=== PATIENT | male | born 1980 | race Caucasian/White ===

== ENCOUNTER 2023-10-24 18:25 | Emergency (ER) | payer OTHER ==
[2023-10-24 18:39] VITALS: RESP 18; TEMP 98.3
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
[2023-10-24] MEDS: AMOXIC-POT CLAV 875-125MG 1 EACH TAB PO STA (20:21)
[2023-10-24 20:51] VITALS: BP 121/83; PULSE 77
== END 2023-10-24 20:30 | disposition home or self-care (01) ==
LOC: EC 18:25
DX: S20.219A Contusion of unspecified front wall of thorax, initial encounter (principal); J32.9 Chronic sinusitis, unspecified; F17.200 Nicotine dependence, unspecified, uncomplicated; Z88.5 Allergy status to narcotic agent; V49.40XA Driver injured in collision with unspecified motor vehicles in traffic accident, initial encounter; Y92.410 Unspecified street and highway as the place of occurrence of the external cause
CPT/HCPCS: 99284

== ENCOUNTER 2024-02-20 08:54 | Emergency (ER) | payer OTHER ==
[2024-02-20 09:04] VITALS: TEMP 97.7
[2024-02-20] MEDS: LIDOCAINE 1% INJ 10MG/ML (20 ML MDV) SQ ONE (09:24)
[2024-02-20] MEDS: DIPH,PERTUS(ACELL)TETVAC-LF 0.5 ML VIAL IM ONE (09:26)
[2024-02-20] MEDS: ONDANSETRON 4 MG/2 ML VIAL IVP STA (09:26)
[2024-02-20] MEDS: HYDROmorphone 1 MG/ML 1 ML SYRINGE IVP STA (09:28)
--- NOTE | 2024-02-20 09:29 | XR ---
EXAMINATION TYPE: XR forearm LT DATE OF EXAM: 02/20/2024 9:23 AM CLINICAL INDICATION:Male, 44 years old with history of pain; COMPARISON: None TECHNIQUE: XR forearm LT; forearm was examined in AP and lateral projections. FINDINGS/IMPRESSION: * No evidence of acute fracture. * Soft tissue defect over the posterior forearm with high density foci possibly representing radiopa que foreign bodies.
[2024-02-20] MEDS: PIPERACILLIN-TAZOBACTAM 3.375 GM in SODIUM CHLORIDE 0.9% 100 ML IVPB STA (09:31)
--- NOTE | 2024-02-20 09:31 | XR ---
EXAMINATION TYPE: XR hand complete bilateral DATE OF EXAM: 02/20/2024 9:22 AM CLINICAL INDICATION:Male, 44 years old with history of Dog bite; [facility] COMPARISON: None TECHNIQUE: XR hand complete bilateral Frontal, lateral and oblique views were obtained. FINDINGS: Normal alignment of the visualized joints. No acute osseous pathology is identified. No e vidence of soft tissue swelling. No significant degeneration. No radiopaque foreign bodies. IMPRESSION: No acute osseous pathology.
--- NOTE | 2024-02-20 10:00 | ED ---
Animal Bite HPI - General Chief Complaint: Animal Bite Stated Complaint: Animal bite Time Seen by Provider: 02/20/24 09:04 Source: patient, EMS, RN notes reviewed Mode of arrival: EMS Limitations: no limitations - History of Present Illness Initial Comments: 44-year-old male presents emergency department complaint of dog bite. Patient states that he broke up his dog and his sisters dog. Patient states that both dogs are up-to-date on vaccines patient unsure when his last tetanus was. Patient states he has bites on both hands, arms. - Related Data Previous Rx's Medication Instructions Recorded Amoxic-Pot Clav 875-125Mg 1 tab PO Q12HR 1 Days #14 tab 10/24/23 [Augmentin 875-125] Amoxic-Pot Clav 875-125Mg 1 tab PO Q12HR #20 tab 02/20/24 [Augmentin 875-125] Ibuprofen [Motrin] 600 mg PO Q8HR PRN #20 tab 02/20/24 traMADol HCl [Ultram] 50 mg PO Q6H PRN #12 tab 02/20/24 Allergies Allergy/AdvReac Type Severity Reaction Status Date / Time codeine AdvReac Itching Verified 02/20/24 09:03 Review of Systems ROS Statement: Those systems with pertinent positive or pertinent negative responses have been documented in the HPI. ROS Other: All systems not noted in ROS Statement are negative. Past Medical History Past Medical History: No Reported History History of Any Multi-Drug Resistant Organisms: None Reported Past Surgical History: Orthopedic Surgery Additional Past Surgical History / Comment(s): Bilat carpal tunnel, Left great toe Past Psychological History: No Psychological Hx Reported Smoking Status: Light tobacco smoker Past Alcohol Use History: None Reported Past Drug Use History: None Reported General Exam Limitations: no limitations General appearance: alert, in no apparent distress Head exam: Present: atraumatic, normocephalic, normal inspection Respiratory exam: Present: normal lung sounds bilaterally. Absent: respiratory distress, wheezes, rales, rhonchi, stridor Cardiovascular Exam: Present: regular rate, normal rhythm, normal heart sounds. Absent: systolic murmur, diastolic murmur, rubs, gallop, clicks Extremities exam: Present: other (Multiple lacerations, puncture wounds to both hands, forearms, no active bleeding full range of motion neurovascular intact) Neurological exam: Present: alert, reflexes normal. Absent: motor sensory deficit Course Vital Signs 02/20/24 02/20/24 08:56 09:25 Temperature 97.7 F Pulse Rate 61 73 Respiratory 17 17 Rate Blood Pressure 112/82 121/86 O2 Sat by Pulse 100 100 Oximetry Procedures - Laceration Laceration #1 Consent Obtained: verbal consent Indication: laceration Site: hand Size (cm): 2 Description: irregular Depth: simple, single layer Anesthetic Used: lidocaine 1% Anesthesia Technique: local infiltration Amount (mls): 2 Pre-repair: wound explored, irrigated extensively, deep structures intact Type of Sutures: nylon Size of Sutures: 4-0 Number of Sutures: 2 Technique: simple, interrupted Patient Tolerated Procedure: well, no complications Laceration #2 Site: upper extremity Size (cm): 1 Description: linear Depth: simple, single layer Anesthetic Used: lidocaine 1% Anesthesia Technique: local infiltration Amount (mls): 1 Pre-repair: wound explored, irrigated extensively, deep structures intact Type of Sutures: nylon Size of Sutures: 4-0 Number of Sutures: 1 Technique: simple, interrupted Patient Tolerated Procedure: well, no complications Laceration #3 Consent Obtained: verbal consent Indication: laceration Site: upper extremity Size (cm): 1 Description: linear Anesthetic Used: lidocaine 1% Anesthesia Technique: local infiltration Amount (mls): 1 Pre-repair: wound explored, irrigated extensively, deep structures intact Type of Sutures: nylon Size of Sutures: 4-0 Number of Sutures: 2 Technique: simple, interrupted Patient Tolerated Procedure: well, no complications Laceration #4 Consent Obtained: verbal consent Indication: laceration Site: upper extremity (1) Size (cm): 1 Description: irregular Depth: simple, single layer Anesthetic Used: lidocaine 1% Anesthesia Technique: local infiltration Amount (mls): 1 Pre-repair: wound explored Type of Sutures: nylon Size of Sutures: 4-0 Number of Sutures: 2 Technique: simple, interrupted Patient Tolerated Procedure: well, no complications Laceration #6 Consent Obtained: verbal consent Indication: laceration Site: upper extremity Size (cm): 1 Description: linear, irregular Depth: simple, single layer Anesthetic Used: lidocaine 1% Anesthesia Technique: local infiltration Amount (mls): 1 Pre-repair: wound explored, irrigated extensively, deep structures intact Type of Sutures: nylon Size of Sutures: 4-0 Number of Sutures: 1 Patient Tolerated Procedure: well, no complications Medical Decision Making - Medical Decision Making Was pt. sent in by a medical professional or institution (BATOOL James, INVENTORY ASSOCIATE AND DRIVER, urgent care, hospital, or alf...) When possible be specific @ -No Did you speak to anyone other than the patient for history (EMS, parent, family, police, friend...)? What history was obtained from this source @ -No Did you review nursing and triage notes (agree or disagree)? Why? @ -I reviewed and agree with nursing and triage notes Were old charts reviewed (outside hosp., previous admission, EMS record, old EKG, old radiological studies, urgent care reports/EKG's, alf records)? Report findings @ -No old charts were reviewed Differential Diagnosis (chest pain, altered mental status, abdominal pain women, abdominal pain men, vaginal bleeding, weakness, fever, dyspnea, syncope, headache, dizziness, GI bleed, back pain, seizure, CVA, palpatations, mental health, musculoskeletal)? @ -Dog bite, laceration, foreign body, puncture wound EKG interpreted by me (3pts min.). @ -None X-rays interpreted by me (1pt min.). @ -X-ray bilateral hands no acute abnormality no acute fracture X-ray left forearm possible foreign body left upper arm CT interpreted by me (1pt min.). @ -None done U/S interpreted by me (1pt. min.). @ -None done What testing was considered but not performed or refused? (CT, X-rays, U/S, labs)? Why? @ -None What meds were considered but not given or refused? Why? @ -None Did you discuss the management of the patient with other professionals (professionals i.e. BATOOL James, INVENTORY ASSOCIATE AND DRIVER, lab, RT, psych nurse, oncology social work, mural painter, teacher, electoral officer, director of casework services)? Give summary @ -No Was smoking cessation discussed for >3mins.? @ -No Was critical care preformed (if so, how long)? @ -No Were there social determinants of health that impacted care today? How? (Homelessness, low income, unemployed, alcoholism, drug addiction, transportation, low edu. Level, literacy, decrease access to med. care, long-term, rehab)? @ -No Was there de-escalation of care discussed even if they declined (Discuss DNR or withdrawal of care, Hospice)? DNR status @ -No What co-morbidities impacted this encounter? (DM, HTN, Smoking, COPD, CAD, Cancer, CVA, ARF, Chemo, Hep., AIDS, mental health diagnosis, sleep apnea, morbid obesity)? @ -None Was patient admitted / discharged? Hospital course, mention meds given and route, prescriptions, significant lab abnormalities, going to OR and other pertinent info. @ -Discharge patient's wounds were thoroughly cleaned, irrigated, loosely approximated patient was given tetanus, IV antibiotics. Patient was discharged on oral antibiotics with close recheck, return parameters discussed and wound care discussed Undiagnosed new problem with uncertain prognosis? @ -No Drug Therapy requiring intensive monitoring for toxicity (Heparin, Nitro, Insulin, Cardizem)? @ -No Were any procedures done? @ -Laceration repair Diagnosis/symptom? @ -Dog bite, multiple lacerations Acute, or Chronic, or Acute on Chronic? @ -Acute Uncomplicated (without systemic symptoms) or Complicated (systemic symptoms)? @ -Uncomplicated Side effects of treatment? @ -No Exacerbation, Progression, or Severe Exacerbation? @ -No Poses a threat to life or bodily function? How? (Chest pain, [place], [place], pneumonia, PE, COPD, DKA, ARF, appy, cholecystitis, CVA, Diverticulitis, Homicidal, Suicidal, threat to staff... and all critical care pts) @ -No Disposition Clinical Impression: Dog bite Disposition: HOME SELF-CARE Condition: Stable Instructions (If sedation given, give patient instructions): Animal Bite (ED) Additional Instructions: Please return to the Emergency Department if symptoms worsen or any other concerns. Suture removal in 10 days. Prescriptions: Amoxic-Pot Clav 875-125Mg [Augmentin 875-125] 1 tab PO Q12HR #20 tab Ibuprofen [Motrin] 600 mg PO Q8HR PRN #20 tab PRN Reason: Pain traMADol HCl [Ultram] 50 mg PO Q6H PRN #12 tab PRN Reason: Pain Is patient prescribed a controlled substance at d/c from ED?: No Referrals: None,Stated [Primary Care Provider] - 1-2 days Time of Disposition: 10:00
[2024-02-20 10:01] VITALS: BP 107/79; PULSE 75; RESP 16
[2024-02-20] MEDS: traMADol 50 MG STARTER PACK 3 TAB BTL PO STA (10:04)
== END 2024-02-20 10:11 | disposition home or self-care (01) ==
LOC: EC 08:54
DX: S61.452A Open bite of left hand, initial encounter (principal); S61.451A Open bite of right hand, initial encounter; F17.200 Nicotine dependence, unspecified, uncomplicated; Z88.5 Allergy status to narcotic agent; Z23 Encounter for immunization; W54.0XXA Bitten by dog, initial encounter
CPT/HCPCS: 73130; 73090; 90715; 99283; 90471; 96365; 96375 ×2; 12002; J2543; J2405; J2001; J1170